=== PATIENT | female | born 1965 | race African-American/Black ===

== ENCOUNTER 2018-06-29 14:52 | Emergency (ER) | payer MEDICAID, OTHER ==
[~2018-06-29] VITALS: Ht 172.7 cm; Wt 114.8 kg
[2018-06-29 15:02] VITALS: BP 157/87
[2018-06-29] MEDS ORDERED: METHOCARBAMOL 500 MG TAB PO ONE (15:45)
[2018-06-29] MEDS ORDERED: KETOROLAC TROMETH 60MG/2ML VIAL IM ONE (15:45)
== END 2018-06-29 16:43 | disposition home or self-care (01) ==
LOC: ER 14:59
DX: M43.6 Torticollis (principal)
CPT/HCPCS: 72040; 96372; 99283; J1885